=== PATIENT | male | born 1950 | race Caucasian/White ===

== ENCOUNTER 2016-07-31 08:30 | Inpatient (IN) | payer MEDICARE, OTHER ==
[~2016-07-31] VITALS: Ht 172.7 cm; Wt 161.6 kg
[2016-07-31 09:58] LABS: BASOPHIL 0.1 % (0-2); EOSINOPHIL 3.5 % (0-5); HCT 45.6 % (42.0-52.0); HGB 14.4 g/dl (13.2-18.0); LYMPHOCYTE 19.4 % (15-48); MCH 31.2 pg (25.0-31.0); MCHC 31.6 g/dL (32.0-36.0); MCV 98.9 fL (78.0-100.0); MONOCYTE 11.1 % (0-12); MPV 10.7 fL (6.0-9.5); NEUTROPHIL 65.9 % (41-80); PLT 156 K/uL (150-400); RBC 4.61 M/uL (4.70-6.00); WBC 6.9 K/uL (4.0-10.5)
[2016-07-31 10:00] LABS: LACTIC ACID 1.5 mmol/L (0.5-2.2)
[2016-07-31 10:03] LABS: ALBUMIN 3.9 g/dL (3.4-4.8); BILIRUBIN - TOTAL 0.5 mg/dL (0.1-1.0); CREATININE 0.6 mg/dL (0.7-1.2); GLOBULIN (CALCULATION) 2.8 g/dL (2.2-4.2); POTASSIUM 4.3 mmol/L (3.5-5.1); TOTAL PROTEIN 6.7 g/dL (6.4-8.3)
[2016-07-31 10:04] LABS: TROPONIN T < 0.010 ng/mL
[2016-07-31 10:09] LABS: PRO-BNP 1439 pg/mL (0-125)
[2016-07-31 10:29] LABS: BILIRUBIN NEGATIVE (NEGATIVE); BLOOD NEGATIVE Ery/uL (NEGATIVE); CLARITY CLEAR (CLEAR); COLOR YELLOW (YELLOW); GLUCOSE (U) NORMAL (NORMAL); KETONE (U) NEGATIVE (NEGATIVE); LEUKOCYTES NEGATIVE Leu/uL (NEGATIVE); NITRITE NEGATIVE (NEGATIVE); PROTEIN 1+ mg/dL (NEGATIVE); SPECIFIC GRAVITY 1.015 (1.001-1.030)
[2016-07-31 11:24] LABS: BACTERIA TRACE; SQUAMOUS EPITHELIAL CELLS RARE; URINARY RBC RARE; URINARY WBC RARE
[2016-08-01 01:56] LABS: HCT 45.7 % (42.0-52.0); HGB 13.6 g/dl (13.2-18.0); MCH 30.1 pg (25.0-31.0); MCHC 29.8 g/dL (32.0-36.0); MCV 101.1 fL (78.0-100.0); MPV 10.6 fL (6.0-9.5); RBC 4.52 M/uL (4.70-6.00); RDW 15.1 % (11.5-14.0); WBC 9.7 K/uL (4.0-10.5)
[2016-08-01 02:18] LABS: CREATININE 0.7 mg/dL (0.7-1.2)
[2016-08-02 04:44] LABS: HCT 44.6 % (42.0-52.0); HGB 13.6 g/dl (13.2-18.0); MCH 30.6 pg (25.0-31.0); MCHC 30.5 g/dL (32.0-36.0); MCV 100.2 fL (78.0-100.0); MPV 10.5 fL (6.0-9.5); RBC 4.45 M/uL (4.70-6.00); WBC 8.3 K/uL (4.0-10.5)
[2016-08-02 05:06] LABS: CREATININE 0.6 mg/dL (0.7-1.2)
[2016-08-02 15:55] LABS: URINE CREATININE 174.4 mg/dL (40-278); URINE TOTAL PROTEIN-RANDOM 30.2 mg/dL
[2016-08-02 18:06] LABS: CKMB 1.19 ng/mL (0.97-4.94); TROPONIN T < 0.010 ng/mL
[2016-08-02 23:53] LABS: CKMB 1.04 ng/mL (0.97-4.94); TROPONIN T < 0.010 ng/mL
[2016-08-03 05:55] LABS: HCT 44.2 % (42.0-52.0); HGB 13.5 g/dl (13.2-18.0); MCH 30.4 pg (25.0-31.0); MCHC 30.5 g/dL (32.0-36.0); MCV 99.5 fL (78.0-100.0); RBC 4.44 M/uL (4.70-6.00); RDW 14.9 % (11.5-14.0); WBC 9.6 K/uL (4.0-10.5)
[2016-08-03 06:11] LABS: CREATININE 0.6 mg/dL (0.7-1.2); POTASSIUM 3.9 mmol/L (3.5-5.1)
[2016-08-03 06:12] LABS: TROPONIN T < 0.010 ng/mL
[2016-08-04 03:08] LABS: HCT 43.8 % (42.0-52.0); HGB 13.4 g/dl (13.2-18.0); MCH 30.2 pg (25.0-31.0); MCHC 30.6 g/dL (32.0-36.0); MCV 98.6 fL (78.0-100.0); MPV 10.3 fL (6.0-9.5); RBC 4.44 M/uL (4.70-6.00); RDW 14.9 % (11.5-14.0); WBC 9.5 K/uL (4.0-10.5)
[2016-08-04 03:31] LABS: CREATININE 0.6 mg/dL (0.7-1.2); MAGNESIUM 2.04 mg/dL (1.40-2.10); POTASSIUM 3.7 mmol/L (3.5-5.1)
[2016-08-05 05:16] LABS: HCT 43.1 % (42.0-52.0); HGB 13.2 g/dl (13.2-18.0); MCH 30.3 pg (25.0-31.0); MCHC 30.6 g/dL (32.0-36.0); MCV 98.9 fL (78.0-100.0); MPV 10.6 fL (6.0-9.5); RBC 4.36 M/uL (4.70-6.00); RDW 14.8 % (11.5-14.0); WBC 7.3 K/uL (4.0-10.5)
[2016-08-05 05:28] LABS: CREATININE 0.7 mg/dL (0.7-1.2); POTASSIUM 3.7 mmol/L (3.5-5.1)
[2016-08-06 04:41] LABS: CREATININE 0.7 mg/dL (0.7-1.2); POTASSIUM 3.6 mmol/L (3.5-5.1)
[2016-08-07 04:02] LABS: HCT 43.1 % (42.0-52.0); HGB 13.4 g/dl (13.2-18.0); MCH 30.2 pg (25.0-31.0); MCHC 31.1 g/dL (32.0-36.0); MCV 97.3 fL (78.0-100.0); MPV 10.2 fL (6.0-9.5); RBC 4.43 M/uL (4.70-6.00); RDW 14.4 % (11.5-14.0); WBC 11.7 K/uL (4.0-10.5)
[2016-08-07 04:16] LABS: CREATININE 1.1 mg/dL (0.7-1.2); POTASSIUM 3.8 mmol/L (3.5-5.1)
--- NOTE | 2016-08-07 19:13 | NUR ---
PT VOIDED 200 ML CLEAR YELLOW URINE SINCE ALMENDAREZ REMOVED WITHOUT DIFFICULYT
[2016-08-08 03:37] LABS: HCT 43.8 % (42.0-52.0); HGB 13.5 g/dl (13.2-18.0); MCH 30.2 pg (25.0-31.0); MCHC 30.8 g/dL (32.0-36.0); MPV 10.3 fL (6.0-9.5); RBC 4.47 M/uL (4.70-6.00); RDW 14.5 % (11.5-14.0); WBC 12.7 K/uL (4.0-10.5)
[2016-08-08 03:53] LABS: CREATININE 1.4 mg/dL (0.7-1.2); POTASSIUM 3.3 mmol/L (3.5-5.1)
[2016-08-09 04:05] LABS: HCT 42.9 % (42.0-52.0); HGB 13.3 g/dl (13.2-18.0); MCH 30.2 pg (25.0-31.0); MCV 97.5 fL (78.0-100.0); MPV 10.8 fL (6.0-9.5); RBC 4.4 M/uL (4.70-6.00); RDW 14.3 % (11.5-14.0)
[2016-08-09 04:06] LABS: WBC 18.5 K/uL (4.0-10.5)
[2016-08-09 04:12] LABS: CREATININE 1.2 mg/dL (0.7-1.2); POTASSIUM 3.1 mmol/L (3.5-5.1)
[2016-08-09 14:39] LABS: BILIRUBIN 1+ mg/dL (NEGATIVE); BLOOD 3+ Ery/uL (NEGATIVE); CLARITY CLEAR (CLEAR); COLOR YELLOW (YELLOW); GLUCOSE (U) NORMAL (NORMAL); KETONE (U) NEGATIVE (NEGATIVE); LEUKOCYTES 3+ Leu/uL (NEGATIVE); NITRITE NEGATIVE (NEGATIVE); PROTEIN 2+ mg/dL (NEGATIVE); SPECIFIC GRAVITY 1.015 (1.001-1.030)
[2016-08-09 14:54] LABS: BACTERIA 4+; URINARY RBC 20-50; URINARY WBC TNTC
[2016-08-09 14:55] LABS: SPERM PRESENT
[2016-08-10 06:10] LABS: HCT 43.1 % (42.0-52.0); HGB 13.2 g/dl (13.2-18.0); MCH 29.9 pg (25.0-31.0); MCHC 30.6 g/dL (32.0-36.0); MCV 97.7 fL (78.0-100.0); MPV 10.6 fL (6.0-9.5); RBC 4.41 M/uL (4.70-6.00); RDW 14.2 % (11.5-14.0)
[2016-08-10 06:39] LABS: ALBUMIN 3.3 g/dL (3.4-4.8); BILIRUBIN - TOTAL 0.2 mg/dL (0.1-1.0); CREATININE 0.9 mg/dL (0.7-1.2); GLOBULIN (CALCULATION) 3.2 g/dL (2.2-4.2); POTASSIUM 4.5 mmol/L (3.5-5.1); TOTAL PROTEIN 6.5 g/dL (6.4-8.3)
[2016-08-11 01:44] LABS: HCT 41.5 % (42.0-52.0); MCH 30.1 pg (25.0-31.0); MCHC 31.3 g/dL (32.0-36.0); MCV 96.1 fL (78.0-100.0); MPV 9.9 fL (6.0-9.5); RBC 4.32 M/uL (4.70-6.00)
[2016-08-11 02:03] LABS: CREATININE 0.8 mg/dL (0.7-1.2); POTASSIUM 3.8 mmol/L (3.5-5.1)
[2016-08-27] MEDS ORDERED: ACETAMINOPHEN325 MG PO (07:39)
[2016-08-27] MEDS ORDERED: MICONAZOLE 2% P85 GM TOP (07:40)
[2016-08-27] MEDS ORDERED: COLACE100 MG PO (07:40)
[2016-08-27] MEDS ORDERED: VENELEX OINTMEN60 GM TOP ×2 (07:40)
[2016-08-27] MEDS ORDERED: BUMEX1 MG PO (07:41)
[2016-08-27] MEDS ORDERED: CHILDREN'S50 MG/1.25 PO (07:41)
[2016-08-27] MEDS ORDERED: NORVASC5 MG PO (07:41)
[2016-08-27] MEDS ORDERED: MIRALAX17 GM PO (07:41)
[2016-08-27] MEDS ORDERED: LOPRESSOR50 MG PO (07:41)
[2016-08-27] MEDS ORDERED: ASPIRIN CHEWABL81 MG PO (07:42)
[2016-08-27] MEDS ORDERED: CERTAGEN1 EACH PO (07:42)
[2016-08-27] MEDS ORDERED: NIACIN500 M1 PO (07:42)
[2016-08-27] MEDS ORDERED: LAXATIVE OF CHOICE (07:42)
[2016-08-27] MEDS ORDERED: LISINOPRIL40 MG PO (07:42)
[2016-08-27] MEDS ORDERED: ZOLOFT100 M1 PO (07:42)
== END 2016-08-11 16:31 | DRG 291 ==
LOC: FER 08:30 → FICU 11:15 → FTCU 08-05 14:00 → FMS 08-09 13:00
PROVIDERS: Internal Medicine; Internal Medicine Adolescent Medicine; Internal Medicine Cardiovascular Disease; Internal Medicine Nephrology; ADMIT Internal Medicine
DX: I50.33 Acute on chronic diastolic (congestive) heart failure (principal); J96.22 Acute and chronic respiratory failure with hypercapnia; J96.21 Acute and chronic respiratory failure with hypoxia; E87.4 Mixed disorder of acid-base balance; I27.81 Cor pulmonale (chronic); L03.116 Cellulitis of left lower limb; E66.2 Morbid (severe) obesity with alveolar hypoventilation; Z68.43 Body mass index [BMI] 50.0-59.9, adult; Z79.82 Long term (current) use of aspirin; I25.2 Old myocardial infarction; I25.10 Atherosclerotic heart disease of native coronary artery without angina pectoris; Z95.1 Presence of aortocoronary bypass graft; Z87.891 Personal history of nicotine dependence; I10 Essential (primary) hypertension; Z86.12 Personal history of poliomyelitis; Z88.0 Allergy status to penicillin; Z82.3 Family history of stroke; Z80.1 Family history of malignant neoplasm of trachea, bronchus and lung; R60.1 Generalized edema
CPT/HCPCS: 36415; 36600; 71010; 73560; 78579; 78580; 80048; 80053; 80202; 81001; 82550; 82553; 82570; 82803; 83605; 83735; 83880; 84100; 84132; 84145; 84156; 84443; 84484; 85025; 87040; 93005; 94010; 94660; 94667; 94668; 97110; 97162; 97167; 97530; 97530-GP; 97535; A9539; A9540; J1120; J1644; J3370

== ENCOUNTER 2020-03-01 09:15 | Inpatient (IN) | payer MEDICARE ==
[~2020-03-01 09:15] MED LIST: ACETAMINOPHEN325 MG PO; ASPIRIN CHEWABL81 MG PO; BACTRIM DS TAB1 EACH PO; BUMEX1 MG PO; CERTAGEN1 EACH PO; CHILDREN'S50 MG/1.25 PO; COLACE100 MG PO; LAXATIVE OF CHOICE; LISINOPRIL40 MG PO; LOPRESSOR50 MG PO; MICONAZOLE 2% P85 GM TOP; MIRALAX17 GM PO; NIACIN500 M1 PO; NORVASC5 MG PO; SILVADENE20 G1 TOP; VENELEX OINTMEN60 GM TOP; ZOLOFT100 M1 PO
[2020-03-01 10:36] LABS: BASOPHIL 0.3 % (0-2); EOSINOPHIL 1.3 % (0-7); HCT 38.2 % (42.0-52.0); HGB 11.9 g/dl (13.2-18.0); MCH 28.7 pg (25.0-31.0); MCHC 31.2 g/dL (32.0-36.0); MONOCYTE 6.9 % (0-12); MPV 9.8 fL (6.0-9.5); NEUTROPHIL 77.3 % (41-80); NRBC 0; PLT 277 K/uL (150-400); RBC 4.15 M/uL (4.70-6.00); WBC 13.1 K/uL (4.0-10.5)
[2020-03-01 10:45] LABS: INR 1.3 (0.9-1.2); PROTHROMBIN TIME 15.4 SECONDS (11.4-13.6); PTT 34.6 SECONDS (22.2-34.7)
[2020-03-01 11:02] LABS: LACTIC ACID 0.8 mmol/L (0.4-1.9)
[2020-03-01 11:06] LABS: ALBUMIN 2.4 g/dL (3.4-5.0); BILIRUBIN - TOTAL 0.4 mg/dL (0.2-1.0); CREATININE 0.62 mg/dL (0.67-1.17); GLOBULIN (CALCULATION) 4.4 g/dL; POTASSIUM 4.1 mmol/L (3.5-5.1); TOTAL PROTEIN 6.8 g/dL (6.4-8.2)
[2020-03-01 12:46] LABS: BILIRUBIN NEGATIVE (NEGATIVE); BLOOD NEGATIVE Ery/uL (NEGATIVE); CLARITY CLEAR (CLEAR); COLOR YELLOW (YELLOW); GLUCOSE (U) NORMAL (NORMAL); LEUKOCYTES NEGATIVE Leu/uL (NEGATIVE); NITRITE NEGATIVE (NEGATIVE); PROTEIN NEGATIVE (NEGATIVE); SPECIFIC GRAVITY 1.015 (1.001-1.030); UROBILINOGEN 0.2 mg/dL (0.2-1.0); pH 5.5 (5.0-9.0)
[2020-03-01] MEDS ORDERED: KLOR-CON M2020 MEQ PO (14:08)
[2020-03-01] MEDS ORDERED: LOVAZA1 GM PO (14:09)
[2020-03-01] MEDS ORDERED: IBUPROFEN800 MG PO (14:09)
[2020-03-01] MEDS ORDERED: FLOMAX0.4 MG PO (14:10)
[2020-03-01] MEDS ORDERED: VIBRAMYCIN100 MG PO (14:11)
[2020-03-01] MEDS ORDERED: BUMEX1 MG PO ×2 (15:31)
[2020-03-02 05:36] LABS: BASOPHIL 0.3 % (0-2); EOSINOPHIL 0.1 % (0-7); HCT 38.5 % (42.0-52.0); LYMPHOCYTE 10.1 % (15-48); MCH 28.4 pg (25.0-31.0); MCHC 31.2 g/dL (32.0-36.0); MCV 91.2 fL (78.0-100.0); MONOCYTE 5.4 % (0-12); MPV 9.5 fL (6.0-9.5); NRBC 0; PLT 309 K/uL (150-400); RBC 4.22 M/uL (4.70-6.00); RDW 13.7 % (11.5-14.0); WBC 16.3 K/uL (4.0-10.5)
[2020-03-02 05:55] LABS: BUN/CREAT RATIO (CALC) 18.2 RATIO; CREATININE 0.55 mg/dL (0.67-1.17)
--- NOTE | 2020-03-02 18:18 | NUR ---
NURSE CALLED [facility] TO REPORT VANC TROUGH OF 12.8, NURSE WAS ADVISED TO GO ON AND GIVE SCHEDULED DOSE OF 2000 MG.
[2020-03-03 04:47] LABS: BASOPHIL 0.3 % (0-2); EOSINOPHIL 0.5 % (0-7); HCT 38.4 % (42.0-52.0); HGB 11.6 g/dl (13.2-18.0); LYMPHOCYTE 11.2 % (15-48); MCH 28.1 pg (25.0-31.0); MCHC 30.2 g/dL (32.0-36.0); MPV 9.8 fL (6.0-9.5); NEUTROPHIL 82.1 % (41-80); NRBC 0; PLT 335 K/uL (150-400); RBC 4.13 M/uL (4.70-6.00); RDW 13.6 % (11.5-14.0); WBC 14.9 K/uL (4.0-10.5)
[2020-03-03 05:08] LABS: CREATININE 0.5 mg/dL (0.67-1.17); MAGNESIUM 2.3 mg/dL (1.8-2.4); POTASSIUM 3.8 mmol/L (3.5-5.1)
[2020-03-04 07:05] LABS: HCT 38.8 % (42.0-52.0); HGB 11.5 g/dl (13.2-18.0); MCHC 29.6 g/dL (32.0-36.0); MCV 94.6 fL (78.0-100.0); MPV 9.5 fL (6.0-9.5); RBC 4.1 M/uL (4.70-6.00); RDW 13.5 % (11.5-14.0); WBC 13.3 K/uL (4.0-10.5)
[2020-03-04 07:34] LABS: BUN/CREAT RATIO (CALC) 16.1 RATIO; C-REACTIVE PROTEIN 6.1 mg/dL (<=0.90); CREATININE 0.56 mg/dL (0.67-1.17)
[2020-03-05 07:39] LABS: BASOPHIL 0.3 % (0-2); EOSINOPHIL 1.5 % (0-7); HCT 42.6 % (42.0-52.0); HGB 13.1 g/dl (13.2-18.0); LYMPHOCYTE 17.7 % (15-48); MCH 28.4 pg (25.0-31.0); MCHC 30.8 g/dL (32.0-36.0); MCV 92.2 fL (78.0-100.0); MONOCYTE 6.9 % (0-12); MPV 9.5 fL (6.0-9.5); NRBC 0; PLT 332 K/uL (150-400); RBC 4.62 M/uL (4.70-6.00); RDW 13.5 % (11.5-14.0); WBC 12.6 K/uL (4.0-10.5)
[2020-03-05 08:01] LABS: BUN/CREAT RATIO (CALC) 16.1 RATIO; C-REACTIVE PROTEIN 4.5 mg/dL (<=0.90); CREATININE 0.62 mg/dL (0.67-1.17); POTASSIUM 4.5 mmol/L (3.5-5.1)
[2020-03-06 06:42] LABS: BASOPHIL 0.4 % (0-2); EOSINOPHIL 2.2 % (0-7); HGB 12.3 g/dl (13.2-18.0); LYMPHOCYTE 22.7 % (15-48); MCH 28.6 pg (25.0-31.0); MCHC 31.5 g/dL (32.0-36.0); MCV 90.7 fL (78.0-100.0); MONOCYTE 9.3 % (0-12); MPV 9.6 fL (6.0-9.5); NRBC 0; PLT 305 K/uL (150-400); RDW 13.5 % (11.5-14.0); WBC 10.7 K/uL (4.0-10.5)
[2020-03-06 07:00] LABS: C-REACTIVE PROTEIN 4.6 mg/dL (<=0.90); CREATININE 0.55 mg/dL (0.67-1.17); POTASSIUM 4.1 mmol/L (3.5-5.1)
--- NOTE | 2020-03-06 14:53 | NUR ---
03/06/20 Mr. Calabrese lives at home with his spouse. He has a wc, 3in1, and handicapped accesible bathroom. Mr. Calabrese prefers to remain in the hospital for IV antibiotics opposed to HH services. He prefers [facility] if required. Mr. Calabrese does not wish to have PT through HH as recommnded by Physical Therapy. Report given to Dr. Su.
--- NOTE | 2020-03-06 17:21 | NUR ---
1500 PICC LINE/MIDLINE WAS ORDERED FOR IV ANTIBIOTICS AT HOME, WENT TO PATIENT'S ROOM AND PATIENT REFUSED MID/PICC LINE. DISCUSSED WITH PATIENT WHAT A PICC LINE/ MIDLINE WAS AND PT STILL REFUSED ONE.
[2020-03-07 05:54] LABS: BASOPHIL 0.5 % (0-2); EOSINOPHIL 2.8 % (0-7); HCT 39.4 % (42.0-52.0); HGB 12.1 g/dl (13.2-18.0); MCH 27.8 pg (25.0-31.0); MCHC 30.7 g/dL (32.0-36.0); MCV 90.6 fL (78.0-100.0); MONOCYTE 9.3 % (0-12); MPV 9.5 fL (6.0-9.5); NEUTROPHIL 63.9 % (41-80); NRBC 0; PLT 312 K/uL (150-400); RBC 4.35 M/uL (4.70-6.00); RDW 13.5 % (11.5-14.0); WBC 9.9 K/uL (4.0-10.5)
[2020-03-07 06:05] LABS: BUN/CREAT RATIO (CALC) 19.7 RATIO; C-REACTIVE PROTEIN 6.2 mg/dL (<=0.90); CREATININE 0.66 mg/dL (0.67-1.17); POTASSIUM 4.4 mmol/L (3.5-5.1)
[2020-03-08 06:25] LABS: BASOPHIL 0.5 % (0-2); EOSINOPHIL 2.3 % (0-7); HCT 38.4 % (42.0-52.0); LYMPHOCYTE 18.8 % (15-48); MCH 28.3 pg (25.0-31.0); MCHC 31.3 g/dL (32.0-36.0); MCV 90.6 fL (78.0-100.0); MONOCYTE 9.7 % (0-12); MPV 9.8 fL (6.0-9.5); NEUTROPHIL 68.3 % (41-80); NRBC 0; PLT 308 K/uL (150-400); RBC 4.24 M/uL (4.70-6.00); RDW 13.6 % (11.5-14.0); WBC 9.9 K/uL (4.0-10.5)
[2020-03-08 06:56] LABS: BUN/CREAT RATIO (CALC) 19.1 RATIO; C-REACTIVE PROTEIN 7.1 mg/dL (<=0.90); CREATININE 0.68 mg/dL (0.67-1.17); POTASSIUM 4.3 mmol/L (3.5-5.1)
[2020-03-08 06:59] LABS: VANCOMYCIN, TROUGH 20.8 ug/mL (10-20)
[2020-03-09 05:58] LABS: BASOPHIL 0.6 % (0-2); EOSINOPHIL 2.6 % (0-7); HGB 11.8 g/dl (13.2-18.0); LYMPHOCYTE 21.2 % (15-48); MCH 28.4 pg (25.0-31.0); MCHC 31.1 g/dL (32.0-36.0); MCV 91.6 fL (78.0-100.0); MPV 9.5 fL (6.0-9.5); NEUTROPHIL 66.2 % (41-80); NRBC 0; PLT 292 K/uL (150-400); RBC 4.15 M/uL (4.70-6.00); RDW 13.6 % (11.5-14.0); WBC 9.6 K/uL (4.0-10.5)
[2020-03-09 06:13] LABS: BUN/CREAT RATIO (CALC) 20.6 RATIO; C-REACTIVE PROTEIN 8.8 mg/dL (<=0.90); CREATININE 0.68 mg/dL (0.67-1.17); POTASSIUM 4.3 mmol/L (3.5-5.1)
[2020-03-10 06:43] LABS: BASOPHIL 0.5 % (0-2); EOSINOPHIL 3.3 % (0-7); HCT 39.6 % (42.0-52.0); HGB 12.3 g/dl (13.2-18.0); LYMPHOCYTE 20.1 % (15-48); MCH 28.3 pg (25.0-31.0); MCHC 31.1 g/dL (32.0-36.0); MONOCYTE 9.9 % (0-12); MPV 9.6 fL (6.0-9.5); NEUTROPHIL 65.8 % (41-80); NRBC 0; PLT 309 K/uL (150-400); RBC 4.35 M/uL (4.70-6.00); RDW 13.5 % (11.5-14.0); WBC 9.9 K/uL (4.0-10.5)
[2020-03-10 07:34] LABS: BUN/CREAT RATIO (CALC) 21.3 RATIO; C-REACTIVE PROTEIN 9.4 mg/dL (<=0.90); CREATININE 0.61 mg/dL (0.67-1.17); POTASSIUM 4.3 mmol/L (3.5-5.1); VANCOMYCIN, TROUGH 16.7 ug/mL (10-20)
[2020-03-10] MEDS ORDERED: ZYVOX600 MG PO (15:41)
--- NOTE | 2020-03-10 16:09 | NUR ---
03/10/20 A referral was made to [facility] for IV anitibiotic therapy.
== END 2020-03-10 17:30 | disposition home health service (06) | DRG 602 ==
LOC: FER 09:15 → FMS 12:03
PROVIDERS: Emergency Medicine; Internal Medicine; Nurse Practitioner Family; ADMIT Allergy & Immunology Allergy
PROC: B24BZZZ Ultrasonography of Heart with Aorta (ICD-10-PCS; principal; 2020-03-02)
DX: L03.116 Cellulitis of left lower limb (principal); I50.31 Acute diastolic (congestive) heart failure; I11.0 Hypertensive heart disease with heart failure; I25.10 Atherosclerotic heart disease of native coronary artery without angina pectoris; R73.9 Hyperglycemia, unspecified; E66.01 Morbid (severe) obesity due to excess calories; G47.33 Obstructive sleep apnea (adult) (pediatric); F32.9 Major depressive disorder, single episode, unspecified; Z95.1 Presence of aortocoronary bypass graft; Z79.899 Other long term (current) drug therapy; Z88.0 Allergy status to penicillin; Z79.82 Long term (current) use of aspirin; Z20.822 Contact with and (suspected) exposure to COVID-19; Z87.891 Personal history of nicotine dependence; I87.8 Other specified disorders of veins
CPT/HCPCS: 36415; 71045; 80048; 80053; 80202; 81003; 83036; 83605; 83735; 83880; 84145; 85025; 85610; 85730; 86140; 87040; 87070; 87077; 87186; 87205; 93971; 94640; 97110; 97162; 97166; 97530-GP; 97535; J0696; J1642; J1650; J2020; J2405; J3370; J7040; J7050; U0002

== ENCOUNTER 2020-10-26 11:35 | Inpatient (IN) | payer MEDICARE, OTHER ==
[~2020-10-26] VITALS: Ht 172.7 cm; Wt 161.3 kg
[~2020-10-26 11:35] MED LIST changes: -ASPIRIN CHEWABL81 MG PO; +ASPIRIN81 MG PO; -CERTAGEN1 EACH PO; +FLOMAX0.4 MG PO; +IBUPROFEN800 MG PO; +KLOR-CON M2020 MEQ PO; +LOVAZA1 GM PO; +ONE-DAILY MULT1 EACH PO; +VIBRAMYCIN100 MG PO; +ZYVOX600 MG PO
[2020-10-26 12:34] LABS: INR 1.37 (0.9-1.2); PROTHROMBIN TIME 16.2 SECONDS (11.8-13.4); PTT 36.3 SECONDS (24.4-34.7)
[2020-10-26 12:37] LABS: BASOPHIL 0.2 % (0-2); EOSINOPHIL 0 % (0-7); HCT 42.9 % (42.0-52.0); HGB 13.8 g/dl (13.2-18.0); LYMPHOCYTE 4.2 % (15-48); MCH 29.4 pg (25.0-31.0); MCHC 32.2 g/dL (32.0-36.0); MCV 91.5 fL (78.0-100.0); MONOCYTE 8.4 % (0-12); MPV 10.4 fL (6.0-9.5); NEUTROPHIL 83.3 % (41-80); NRBC 0; PLT 172 K/uL (150-400); RBC 4.69 M/uL (4.70-6.00); RDW 14.5 % (11.5-14.0)
[2020-10-26 12:40] LABS: WBC 32.4 K/uL (4.0-10.5)
[2020-10-26 12:43] LABS: LACTIC ACID 2.7 mmol/L (0.4-1.9)
[2020-10-26 12:47] LABS: BILIRUBIN NEGATIVE (NEGATIVE); BLOOD 1+ Ery/uL (NEGATIVE); CLARITY CLEAR (CLEAR); COLOR YELLOW (YELLOW); GLUCOSE (U) NORMAL (NORMAL); LEUKOCYTES 2+ Leu/uL (NEGATIVE); NITRITE NEGATIVE (NEGATIVE); PROTEIN 1+ mg/dL (NEGATIVE); UROBILINOGEN 0.2 mg/dL (0.2-1.0)
[2020-10-26 12:48] LABS: CKMB 0.5 ng/mL (0.0-3.6); PRO-BNP 3785 pg/mL (<125)
[2020-10-26 12:52] LABS: ALBUMIN 3.5 g/dL (3.4-5.0); BUN/CREAT RATIO (CALC) 16.7 RATIO; CREATININE 0.78 mg/dL (0.67-1.17); GLOBULIN (CALCULATION) 3.9 g/dL; POTASSIUM 4.4 mmol/L (3.5-5.1); TOTAL PROTEIN 7.4 g/dL (6.4-8.2)
[2020-10-26 13:04] LABS: BACTERIA 1+; URINARY WBC 20-50
[2020-10-27 06:06] LABS: BASOPHIL 0.3 % (0-2); EOSINOPHIL 0.6 % (0-7); HCT 42.7 % (42.0-52.0); HGB 13.4 g/dl (13.2-18.0); LYMPHOCYTE 5.9 % (15-48); MCHC 31.4 g/dL (32.0-36.0); MCV 92.4 fL (78.0-100.0); MPV 10.5 fL (6.0-9.5); NEUTROPHIL 81.9 % (41-80); NRBC 0; PLT 144 K/uL (150-400); RBC 4.62 M/uL (4.70-6.00); RDW 14.5 % (11.5-14.0)
[2020-10-27 06:07] LABS: WBC 25.5 K/uL (4.0-10.5)
[2020-10-27 06:30] LABS: BUN/CREAT RATIO (CALC) 21.8 RATIO; CREATININE 0.78 mg/dL (0.67-1.17); POTASSIUM 3.5 mmol/L (3.5-5.1)
[2020-10-27] MEDS ORDERED: NIACIN500 M1 PO (08:48)
[2020-10-27] MEDS ORDERED: FLOMAX0.4 MG PO (13:50)
[2020-10-28 07:08] LABS: BASOPHIL 0.3 % (0-2); EOSINOPHIL 2.2 % (0-7); HCT 38.2 % (42.0-52.0); HGB 12.1 g/dl (13.2-18.0); LYMPHOCYTE 10.4 % (15-48); MCH 28.7 pg (25.0-31.0); MCHC 31.7 g/dL (32.0-36.0); MCV 90.7 fL (78.0-100.0); MONOCYTE 4.6 % (0-12); MPV 10.3 fL (6.0-9.5); NEUTROPHIL 81.2 % (41-80); NRBC 0; PLT 153 K/uL (150-400); RBC 4.21 M/uL (4.70-6.00); RDW 14.5 % (11.5-14.0)
[2020-10-28 07:34] LABS: CREATININE 0.61 mg/dL (0.67-1.17); POTASSIUM 3.6 mmol/L (3.5-5.1)
[2020-10-29 05:58] LABS: BASOPHIL 0.4 % (0-2); HCT 41.7 % (42.0-52.0); HGB 13.1 g/dl (13.2-18.0); LYMPHOCYTE 16.2 % (15-48); MCH 28.9 pg (25.0-31.0); MCHC 31.4 g/dL (32.0-36.0); MCV 91.9 fL (78.0-100.0); MONOCYTE 5.1 % (0-12); MPV 10.3 fL (6.0-9.5); NEUTROPHIL 73.5 % (41-80); NRBC 0; PLT 186 K/uL (150-400); RBC 4.54 M/uL (4.70-6.00); RDW 14.4 % (11.5-14.0); WBC 12.8 K/uL (4.0-10.5)
[2020-10-29 06:24] LABS: BUN/CREAT RATIO (CALC) 23.5 RATIO; CREATININE 0.51 mg/dL (0.67-1.17); POTASSIUM 3.9 mmol/L (3.5-5.1)
[2020-10-29] MEDS ORDERED: LEVAQUIN750 MG PO (09:55)
== END 2020-10-29 13:34 | disposition home or self-care (01) | DRG 871 ==
LOC: FER 11:35 → FMS 15:42
PROVIDERS: Emergency Medicine; Family Medicine; ADMIT Allergy & Immunology Allergy
DX: A41.9 Sepsis, unspecified organism (principal); I50.33 Acute on chronic diastolic (congestive) heart failure; E66.2 Morbid (severe) obesity with alveolar hypoventilation; Z68.43 Body mass index [BMI] 50.0-59.9, adult; N45.3 Epididymo-orchitis; I11.0 Hypertensive heart disease with heart failure; Z20.822 Contact with and (suspected) exposure to COVID-19; I25.10 Atherosclerotic heart disease of native coronary artery without angina pectoris; F32.9 Major depressive disorder, single episode, unspecified; E11.9 Type 2 diabetes mellitus without complications; Z99.81 Dependence on supplemental oxygen; Z79.899 Other long term (current) drug therapy; Z95.1 Presence of aortocoronary bypass graft; I25.2 Old myocardial infarction; Z98.890 Other specified postprocedural states; Z87.01 Personal history of pneumonia (recurrent); Z86.12 Personal history of poliomyelitis; Z88.0 Allergy status to penicillin; Z88.8 Allergy status to other drugs, medicaments and biological substances
CPT/HCPCS: 36415; 71045; 76870; 80048; 80053; 80061; 81001; 82553; 83036; 83605; 83880; 84443; 84484; 85025; 85610; 85730; 87040; 87076; 87088; 87186; 93005; 96365; 96375; J0696; J1650; J1940; J1956; U0002